=== PATIENT | female | born 2000 | race Caucasian/White ===

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

== ENCOUNTER 2021-04-10 10:37 | Outpatient (REF) | payer OTHER, SELFPAY ==
[2021-04-10 11:17] LABS: COVID-19 Test Positive (Negative); IDNOW Serial# 16C4AD1C
== END 2021-04-10 10:38 | disposition home or self-care (01) ==
LOC: HO.LAB 10:37
PROVIDERS: Visit Provider Internal Medicine
DX: Z20.822 Contact with and (suspected) exposure to COVID-19 (principal)
CPT/HCPCS: 36415; 87635; C9803

== ENCOUNTER 2022-02-05 20:25 | Emergency (ER) | payer SELFPAY ==
[2022-02-05 21:15] VITALS: BP 156/103; PULSE 86; RESP 16; TEMP 36.8; O2SAT 98; BMI 37.8
--- NOTE | 2022-02-05 21:27 | ED.GENADULT ---
HPI - General Adult General Chief complaint: General Medical Stated complaint: Possible chicken pox on extremities Time Seen by Provider: 02/05/22 21:11 Source: patient Mode of arrival: ambulatory Limitations: no limitations History of Present Illness HPI narrative: Patient comes to the emergency room complaining of itchy bumps in her lower extremities that started 2-3 days ago. Patient denies any fever chills, no nausea vomiting or diarrhea, no systemic illnesses. Patient told the triage nurse that she has been having dizzy spells, but when I spoke to the patient, patient states that sometimes she has vertigo like sensation but it has been going on for years, not new. Patient states that the bumps in her legs are itchy and she has been scratching them. Patient does not have the rash anywhere else in her body Related Data Previous Rx's Medication Instructions Recorded hydrocortisone 2.5 % topical cream 1 appl topical TID #20 grams 02/05/22 hydroxyzine HCl 25 mg tablet 25 mg PO BID PRN itching #10 tabs 02/05/22 Allergies Allergy/AdvReac Type Severity Reaction Status Date / Time amoxicillin [AMOXICILLIN] Allergy Unknown RASH Unverified 12/24/19 17:00 Review of Systems Review of Systems: Constitutional : No Weight loss, No Fever, No Chills, No Night Sweats, No Fatigue, No Malaise ENT/Mouth : No Hearing loss, No Ear Pain, No Nasal Congestion, No Sinus Pain, No Hoarseness, No sore throat, No Rhinorrhea, No Swallowing Difficulty Eyes: No Eye Pain, No Swelling, No Redness, No Foreign Body, No Discharge, No Vision Changes Cardiovascular : No Chest Pain, No SOB, No Dyspnea on Exertion, No Orthopnea, No Edema, No Palpitations Respiratory : No Cough, No Sputum, No Wheezing, No Smoke Exposure, No Dyspnea Gastrointestinal : No Nausea, No Vomiting, No Diarrhea, No Constipation, No abdominal Pain, No Hematochezia, No Melena Genitourinary : no irregular bleeding, No Dysuria, No Urinary Frequency, No Hematuria, No Urinary Incontinence, No Urgency, No Flank Pain, No Urinary Flow Changes, No Hesitancy Musculoskeletal : No joint pain, No Myalgias, No Joint Swelling Skin : Complaining of an itchy rash in lower extremities Neuro : No Weakness, No Numbness, No Paresthesias, No Loss of Consciousness, No Dizziness, No Headache Psych : No Anxiety/Panic, No Depression, No SI/HI/AH/VH, No Social Issues, Heme/Lymph: No Bruising, No Bleeding,No Lymphadenopathy Endocrine : No Polyuria, No Polydipsia, No Temperature Intolerance [facility] Social History Social History Advance Directives: No Advance Directives Information Provided: No Physical Exam ED Vital Signs: Vital Signs - 24 hr 02/05/22 21:15 Temperature 98.2 F Pulse Rate 86 Respiratory Rate 16 Blood Pressure 156/103 H Pulse Oximetry 98 Oxygen Delivery Method Room Air BMI result Body Mass Index 37.8 Const Other: Appearance: Alert. Oriented X3. No acute distress. Eyes: Pupils equal, round and reactive to light. ENT: Pharynx normal. Neck: Normal inspection. Neck supple. No lymph nodes noted. No crepitus CVS: Normal heart rate and rhythm. Pulses normal. Normal S1 and S2 Respiratory: No respiratory distress. Breath sounds normal. No Wheezing. No rales Abdomen: Soft and nontender. No rigidity. No distention. Skin: Skin within normal limits except in lower extremities, patient has multiple small papules and pustules on an erythematous base, all of them are at the same stage, scratch mccoy/abrasions present from scratching. There is a contact dermatitis rash in the periumbilical area, no rash in palms or soles Extremities: No lower extremity edema. No Lacerations. No Rash Neuro: Oriented X 3. No motor deficit. No sensory deficit. Moving all extremities. No slurred speech. CN 2 through 12 grossly intact Psych: calm, cooperative, normal affect Course Course Course Narrative: Other than the rash in lower extremities, patient does not have any systemic illnesses. Patient denies taking baths in tubs. Patient's labs are pending, patient getting 1 dose of Solu-Medrol, diphenhydramine There are no significant disturbances in patient's labs. Patient likely having a viral illness versus folliculitis. Patient is well-appearing otherwise. Medical Decision Making Lab Data Result diagrams: 02/05/22 21:45 02/05/22 21:45 Labs: Lab Results 02/05/22 02/05/22 Range/Units 21:45 21:45 WBC 8.0 (4.8-10.8) X10*3/uL RBC 5.35 (4.20-5.50) X10*6/uL Hgb 13.3 (12.0-16.0) g/dl Hct 41.6 (37.0-47.0) % MCV 77.8 L (80.0-98.0) fL MCH 24.9 L (27.0-33.0) pg MCHC 32.0 (31.0-35.0) g/dl RDW 14.2 (11.0-16.0) % Plt Count 270 (160-400) X10*3/uL MPV 10.7 (9.4-12.3) fL Immature Gran % (Auto) 0.1 (0.0-0.4) % Neut % (Auto) 54.0 (45-73) % Lymph % (Auto) 35.3 (20-40) % Craig % (Auto) 8.7 (2-11) % Eos % (Auto) 1.7 (0-4) % Baso % (Auto) 0.2 (0-2) % Lymph # (Auto) 2.8 (1.2-4.9) X10*3/uL Craig # (Auto) 0.7 (0.1-1.2) X10*3/uL Eos # (Auto) 0.1 (0.0-0.4) X10*3/uL Baso # (Auto) 0.0 (0.0-0.2) X10*3/uL Abs Immat Gran (auto) 0.01 (0.00-0.03) X10*3/uL Absolute Neuts (auto) 4.3 (2.0-8.3) x10*3/uL Absolute Nucleated RBC 0.000 (0.0-0.012) X10*3/uL Nucleated RBC % (auto) 0.0 (0.0-0.2) /100WBC Sodium 141 (135-145) mmol/L Potassium 3.7 (3.3-5.1) mmol/L Chloride 106 (96-108) mmol/L Carbon Dioxide 27 (22-29) mmol/L Anion Gap 12 (12-20) BUN 12 (9-16) mg/dL Creatinine 0.69 (0.5-1.4) mg/dL Estim Creat Clear Calc 149.3 Estimated GFR > 60 Random Glucose 101 (60-115) mg/dL Calcium 9.0 (8.4-10.2) mg/dL Discharge Plan Discharge Clinical Impression: Rash and nonspecific skin eruption Patient Disposition: Home, Self-Care Instructions: Acute Rash (ED), Cold Compress or Soak (ED) Additional Instructions: Please follow-up with your primary care physician tomorrow. If you have any worsening or new symptoms, please return to the emergency room or call 911 Prescriptions: New hydroxyzine HCl 25 mg tablet 25 mg PO BID PRN (Reason: itching) Qty: 10 0RF hydrocortisone 2.5 % cream 1 appl topical TID Qty: 20 0RF
[2022-02-05] MEDS: methylPREDNISolone Sod Succ 125 MG/2 ML VIAL IVPUSH (21:39)
[2022-02-05] MEDS: diphenhydrAMINE HCL 50 MG/ML VIAL 25 MG IVPUSH (21:39)
[2022-02-05 21:50] LABS: MANUAL DIFF FLAG NO
[2022-02-05 21:52] LABS: Basophils Percent Auto 0.2 % (0-2); Eosinophils Absolute Auto 0.1 X10*3/uL (0.0-0.4); Eosinophils Percent Auto 1.7 % (0-4); Hematocrit 41.6 % (37.0-47.0); Hemoglobin 13.3 g/dl (12.0-16.0); Imm Gran Abs Auto 0.01 X10*3/uL (0.00-0.03); Imm Gran Pct Auto 0.1 % (0.0-0.4); Lymphocytes Absolute Auto 2.8 X10*3/uL (1.2-4.9); Lymphocytes Percent Auto 35.3 % (20-40); Mean Corpuscular Hemoglobin 24.9 pg (27.0-33.0); Mean Corpuscular Volume 77.8 fL (80.0-98.0); Mean Platelet Volume 10.7 fL (9.4-12.3); Monocytes Absolute Auto 0.7 X10*3/uL (0.1-1.2); Monocytes Percent Auto 8.7 % (2-11); Neutrophils Absolute Auto 4.3 x10*3/uL (2.0-8.3); Platelet Count 270 X10*3/uL (160-400); Red Blood Count 5.35 X10*6/uL (4.20-5.50); Red Cell Distribution Width 14.2 % (11.0-16.0)
[2022-02-05 22:04] LABS: Anion Gap 12 (12-20); Blood Urea Nitrogen 12 mg/dL (9-16); Carbon Dioxide 27 mmol/L (22-29); Chloride 106 mmol/L (96-108); Creatinine Clr Calc Pharmacy 149.3; Estimated Glomerular Filt Rate > 60; Glucose Random 101 mg/dL (60-115); Potassium 3.7 mmol/L (3.3-5.1); Sodium 141 mmol/L (135-145)
== END 2022-02-05 22:31 | disposition home or self-care (01) ==
PROVIDERS: Emergency Provider Emergency Medicine
DX: R21 Rash and other nonspecific skin eruption (principal); Z79.899 Other long term (current) drug therapy
CPT/HCPCS: 36415; 80048; 85025; 96374; 96375; 99283; 99284; J1200; J2930

== ENCOUNTER 2024-04-15 11:12 | Outpatient (REF) | payer SELFPAY ==
[2024-04-15 13:54] LABS: Alanine Aminotransferase 45 U/L (0-31); Albumin Level 4.1 g/dL (3.5-5.0); Alkaline Phosphatase 72 U/L (39-117); Anion Gap 14 (12-20); Aspartate Amino Transferase 39 U/L (5-31); Bilirubin Direct 0.2 mg/dL (0.0-0.5); Bilirubin Total 0.8 mg/dL (0.0-1.0); Blood Urea Nitrogen 10 mg/dL (9-16); Calcium 9.3 mg/dL (8.4-10.2); Carbon Dioxide 27 mmol/L (22-29); Chloride 107 mmol/L (96-108); Cholesterol 163 mg/dL (<200); Estimated Glomerular Filt Rate > 60; Glucose Random 101 mg/dL (60-115); HDL Cholesterol 44 mg/dL (>40); LDL Cholesterol Calculated 98 mg/dL (<100); Potassium 3.6 mmol/L (3.3-5.1); Sodium 144 mmol/L (135-145); TSH reflex Free T4 1.14 uIU/mL (0.32-4.0); Total Protein 7.5 g/dL (6.5-8.0); Triglycerides 106 mg/dL (<150)
[2024-04-15 14:12] LABS: Reflex LDLD? No
== END 2024-04-15 11:13 | disposition home or self-care (01) ==
LOC: HO.HHCL 11:12
PROVIDERS: Visit Provider Internal Medicine
DX: I10 Essential (primary) hypertension (principal); E66.813 Obesity, class 3; E66.01 Morbid (severe) obesity due to excess calories; Z68.41 Body mass index [BMI] 40.0-44.9, adult
CPT/HCPCS: 36415; 80053; 80061; 82248; 84443

== ENCOUNTER 2024-05-06 11:22 | Outpatient (REF) | payer SELFPAY ==
--- OUTSIDE RECORDS SUMMARY | 2024-05-06 13:41 | XMS_ITS | Encounter Summary ---
Author Organization [employer] Address [address] [facility] 7t [place] [address] Care Team Providers Care Intensive Care Nurse Name Role Phone Alice Saucedo MD Primary Care Provider + Reason for Visit * Reason Onset Date Comments Lab Results 04/15/2024 Encounter Details Date Type Department Care Team ([facility] st Contact Info) Description 04/15/2024 Telephone [facility] MEDICINE [address] [place] [address] Alice Saucedo MD [address] [place] [address] Lab Results Social History Tobacco Use Types Packs/Day Years Used Date Smoking Tobacco: Never Passive Smoke Exposure: Never Smokeless Tobacco: Never Alcohol Use Standard Drinks/Week Comments Never 0 (1 standard drink = 0.6 oz pur e alcohol) Depression Answer Date Recorded Patient Health Questionnaire-9 Score 4 02/25/2024 Patient Health Questionnaire-9 Score 4 02/25/2024 Last PHQ-9: Questionnaire Data Not on file 1 04/26/2023 Housing Stability Answer Date Recorded What is your housing situation today? I have josr [place] 02/25/[address] you li ve. Do you have problems with any of the following? None of the above 02/25/2024 Food Insecurity Answer Date Recorded Within the past 12 months, y ou worried that your food would run out before you got money to buy more: Never True 02/25/2024 Within the past 12 months,th e food you bought just didn't last and you didn't have enough money to get more: Never True Transportation Answer Date Recorded In the past 12 months, has l ack of transportation kept you from medical appts, meetings, work or from getting things needed for daily living? No 02/25/2024 Utilities Answer Date Recorded In the past 12 months, has t he electric, gas, oil or water company threatened to shut off services in your home? No 02/25/2024 Depression Answer Date Recorded Patient Health Questionnaire-2 Score 0 02/25/2024 Internet Access Answer Date Recorded Internet Access Q1 No 02/25/2024 Internet Access Q2 I do not want or need it 02/06 Comments No Sex and Gender Information Value Date Recorded Sex Assigned at Female 02/05/2022 10:16 AM EDT Legal Sex Female 10:16 AM EDT Gender Identity Choose not to disclose 10:16 AM EDT Sexual Orientation Choose not to disclose 2021 10:16 AM EDT documented as of this encounter Miscellaneous Notes * Telephone Encounter - Adriana Lennon RN - 04/16/2024 9:03 AM EST Tc to pt to let them know per PCP Patient's labs today showed mildly elevated LFTs, she didn't show to today's appt. Please call her and tell her to get liver tests done again before next appt w me, tell her that the liver seems to be a bit inflamed but is working well, that it may or not be related to fatty liver but we need to make sure she doesn't have any other condition that we can treat in her liver. Please schedule a fu BP appt w RN if I don't have slots within the next 3-4w and tell her to take her BP meds daily (refill profile shows otherwise, last refill x 30d was on 02/24). Pt scheduled for BP Check visit with the red team nurses on 05/06/24, continue to take their BP meds as p rescribed and completed their blood work. Pt verbalized understanding and denies any further questions or concerns at this time. * Telephone Encounter - Marilee Hassan RN - 04/15/2024 3:46 PM EST Telephone call x1 pm to regarding the following message from Dr. Saucedo : Patient's labs today showed mildly elevated LFTs, she didn't show to today's appt. Please call her and tell her to get liver tests done again before next appt w me, tell her that theliver seems to be a bit inflamed but is working well, that it may or not be related to fatty liver but we need to make sure she doesn't have any other condition that we can treat in her liver. Pleaseschedule a fu BP appt w RN if I don't have slots within the next 3-4w and tell her to take her BP meds daily (refill profile shows otherwise, last refill x 30d was on 02/24). No answer. Message wasleft to return call to the Red team nurses . documented in this encounter Plan of Treatment Upcoming Encounters Date Type Department Care Team (Late st Contact Info) Description 05/13/2024 10:00 AM EST Clinical Support [facility] MEDICINE [address] [place] [address] documented as of this encounter Visit Diagnoses Not on filedocumented in this encounter Additional Health Concerns Assessment Noted Time PHQ-9 Depression Total Score: 4 02/25/20 24 1:22 PM EST documented as of this encounter Care Teams Intensive Care Nurse Relationship Specialty Start Date End Date Alice Saucedo MD [address] [place] [address] PCP - General Internal Medicine 12/19/23 documented as of this encounter
--- OUTSIDE RECORDS SUMMARY | 2024-05-06 13:41 | XMS_ITS | Encounter Summary ---
Author Organization [employer] Address [address] [facility] 7t [place] [address] Care Team Providers Care Tool Rental Technician Name Role Phone Monique Wetzel Primary Care Provider [phone] Daniella Cisneros NP Primary Care Provider [phone] Alice Saucedo MD Primary Care Provider + Reason for Visit * Reason Comments Med Refill Encounter Details Date Type Department Care Team (Late st Contact Info) Description 03/05/2023 Refill [facility] MEDICINE [address] [place], [place] [phone] Monique Wetzel FNP [address] [place] [address] Social History Tobacco Use Types Packs/Day Years Used Date Smoking Tobacco: Never Smokeless Tobacco: Never Alcohol Use Standard Drinks/Week Comments Never 0 (1 standard drink = 0.6 oz pur e alcohol) Depression Answer Date Recorded Patient Health Questionnaire-9 Score 0 08/17/2022 Housing Stability Answer Date Recorded What is your housing situation today? I have josr [place] 01/21/[address] you li ve. Do you have problems with any of the following? None of the above 01/21/2023 Food Insecurity Answer Date Recorded Within the past 12 months, y ou worried that your food would run out before you got money to buy more: Sometimes True 2022 Within the past 12 months,th e food you bought just didn't last and you didn't have enough money to get more: Sometimes True 01/21/2023 Transportation Answer Date Recorded In the past 12 months, has l ack of transportation kept you from medical appts, meetings, work or from getting things needed for daily living? No 01/21/2023 Utilities Answer Date Recorded In the past 12 months, has t he electric, gas, oil or water company threatened to shut off services in your home? Yes 01/13/2023 Depression Answer Date Recorded Patient Health Questionnaire-2 Score 0 08/17/2022 Comments Unknown Sex and Gender Information Value Date Recorded Sex Assigned at Female 02/05/2022 10:16 AM EDT Legal Sex Female 10:16 AM EDT Gender Identity Choose not to disclose 10:16 AM EDT Sexual Orientation Choose not to disclose 2021 10:16 AM EDT documented as of this encounter Plan of Treatment Upcoming Encounters Date Type Department Care Team (Late st Contact Info) Description 05/13/2024 10:00 AM EST Clinical Support [facility] [address] [place] [phone] documented as of this encounter Visit Diagnoses Not on filedocumented in this encounter Additional Health Concerns Assessment Noted Time PHQ-9 Depression Total Score: 0 08/18/19 23 2:23 PM EDT documented as of this encounter Care Teams Tool Rental Technician Relationship Specialty Start Date End Date Monique Wetzel FNP [address] [place] [address] PCP - General Family Medicine 08/17/22 12/09/23 Daniella Cisneros NP [address] [place] [address] PCP - General Family Medicine 12/10/23 12/18/23 Alice Saucedo MD [address] [place] [phone] PCP - General Internal Medicine 12/19/23 documented as of this encounter
--- OUTSIDE RECORDS SUMMARY | 2024-05-06 13:41 | XMS_ITS | Encounter Summary ---
Author Organization [employer] Address [address] [facility] 7t [place] [address] Care Team Providers Care Compliance Tester Name Role Phone Alice Saucedo MD Primary Care Provider + Reason for Visit * Reason Onset Date Comments Appointment Request 12/19/2023 Encounter Details Date Type Department Care Team ([facility] st Contact Info) Description 12/19/2023 Telephone [facility] MEDICINE [address] [place] [address] Alice Saucedo MD [address] [place] [address] Appointment Request Social History Tobacco Use Types Packs/Day Years Used Date Smoking Tobacco: Never Passive Smoke Exposure: Never Smokeless Tobacco: Never Alcohol Use Standard Drinks/Week Comments Never 0 (1 standard drink = 0.6 oz pur e alcohol) Depression Answer Date Recorded Patient Health Questionnaire-9 Score 0 08/17/2022 Housing Stability Answer Date Recorded What is your housing situation today? Not on galo e 08/15/[address] you li ve. Do you have problems with any of the following? None of the above 08/15/2023 Food Insecurity Answer Date Recorded Within the [...] encounter Miscellaneous Notes * Telephone Encounter - Magdi Hurley - 12/19/2023 1:23 PM EDT Tc from patient calling to cancel TP appt for 12/19 and would like a call back to reschedule comic book writer did attempt to reschedule however there was no availability documented in this encounter Plan of Treatment Upcoming Encounters Date Type Department Care Team (Late st Contact Info) Description 05/13/2024 10:00 AM EST Clinical Support [facility] MEDICINE [address] [place] [address] documented as of this encounter Visit Diagnoses Not on filedocumented in this encounter Additional Health Concerns Assessment Noted Time PHQ-9 Depression Total Score: 0 08/18/19 23 2:23 PM EDT documented as of this encounter Care Teams Compliance Tester Relationship Specialty Start Date End Date Alice Saucedo MD [address] [place] [address] PCP - General Internal Medicine 12/19/23 documented as of this encounter
--- OUTSIDE RECORDS SUMMARY | 2024-05-06 13:41 | XMS_ITS | Encounter Summary ---
Author Organization [employer] Address [address] [facility] 7t [place] [address] Care Team Providers Care Fighter Pilot Name Role Phone Alice Saucedo MD Primary Care Provider + Encounter Details Date Type Department Care Team ([facility] st Contact Info) Description 04/15/2024 Orders Only [facility] [address] [place], [place] [phone] Alice Saucedo MD [address] [place], [place] [phone] Elevated liver function tests (Primary Dx) Social History Tobacco Use Types Packs/Day Years [...] Description 05/13/2024 10:00 AM EST Clinical Support [facility] [address] [place] [phone] Scheduled Orders Name Type Priority Associated Diagnoses Orde r Schedule Hepatitis Panel, General Lab Routine Elevated liver function tests Expected: 04/15/2024 (Approximate), Expires: 04/15/2025 Syphilis Screen Lab Routine Elevated liver function tests Expected: 04/15/2024 (Approximate), Expires: 04/15/2025 HIV-1/2 Antigen and Antibodies, Fourth Generation, with Reflexes Lab Routine Elevated liver function tests Expected: 04/15/2024 (Approximate), Expires: 04/15/2025 Hepatic Function Panel Lab Routine Elevated liver function tests Expected: 04/15/2024 (Approximate), Expires: 04/15/2025 Gamma Glutamyl Transferase (GGT) Lab Routine Elevated liver function tests Expected: 04/15/2024 (Approximate), Expires: 04/15/2025 Actin (Smooth Muscle) Antibody (IgG) Lab Routine Elevated liver function tests Expected: 04/15/2024 (Approximate), Expires: 04/15/2025 Mitochondrial Antibody with Reflex to Titer Lab Routine Elevated liver function tests Expected: 04/15/2024 (Approximate), Expires: 04/15/2025 documented as of this encounter Visit Diagnoses Diagnosis Elevated liver function tests- Primary Other abnormal blood chemistry documented in this encounter Additional Health Concerns Assessment Noted Time PHQ-9 Depression Total Score: 4 02/25/20 24 1:22 PM EST documented as of this encounter Care Teams Fighter Pilot Relationship Specialty Start Date End Date Alice Saucedo MD [address] [place] [address] PCP - General Internal Medicine 12/19/23 documented as of this encounter
--- OUTSIDE RECORDS SUMMARY | 2024-05-06 13:41 | XMS_ITS | Encounter Summary ---
Author Organization [employer] Address [address] [place] [address] Care Team Providers Care Printing Roller Polisher Name Role Phone Alice Saucedo MD Primary Care Provider + Encounter Details Date Type Department Care Team ([facility] st Contact Info) Description 05/06/2024 Telephone [facility] MEDICINE [address] [place], [place] [phone] Alice Saucedo MD [address] [place] [address] Social History Tobacco Use Types Packs/Day Years [...] encounter Miscellaneous Notes * Telephone Encounter - Neva Calderon - 05/06/2024 12:04 PM EST Pt walked in for appt on 05/06/24 pt was having insurance issues so we sent pt to insurance enrollment, pt came back and said they told her to wait about 30 min to see the update on her insurance and we spoke to the nurse and informed her she came on time but now she is late , the nurse said just tolet her know when she is all set and she can try to see her, pt came back informing us that she works at 1pm and the lady from insurance enrollment went to lunch so she didn't know how long it would to take so we rs the appt. documented in this encounter Plan of Treatment Upcoming Encounters Date Type Department Care Team (Late st Contact Info) Description 05/13/2024 10:00 AM EST Clinical Support [facility] MEDICINE [address] [place] [phone] documented as of this encounter Visit Diagnoses Not on filedocumented in this encounter Additional Health Concerns Assessment Noted Time PHQ-9 Depression Total Score: 4 02/25/20 24 1:22 PM EST documented as of this encounter Care Teams Printing Roller Polisher Relationship Specialty Start Date End Date Alice Saucedo MD [address] [place] [address] PCP - General Internal Medicine 12/19/23 documented as of this encounter
--- OUTSIDE RECORDS SUMMARY | 2024-05-06 13:41 | XMS_ITS | Encounter Summary ---
Author Organization [employer] Address [address] [facility] 7t [place] [address] Care Team Providers Care Software Lead Name Role Phone Alice Saucedo MD Primary Care Provider + Reason for Visit * Reason Onset Date Comments insurance 04/14/2024 Encounter Details Date Type Department Care Team ([facility] st Contact Info) Description 04/14/2024 Telephone [facility] MEDICINE [address] [place], [place] [phone] Alice Saucedo MD [address] [place] [phone] insurance Social History Tobacco Use Types Packs/Day Years [...] encounter Miscellaneous Notes * Telephone Encounter - Cece Marques - 04/14/2024 10:39 AM EST Fd called pt on 04/14/2024 @ 10:41 am to let her know that we don't have insurance on her chart and [facility] ( [facility]) shows that pt is inegible. There was no answer so I left a detailed message with this information. documented in this encounter Plan of Treatment Upcoming Encounters Date Type Department Care Team (Late st Contact Info) Description 05/13/2024 10:00 AM EST Clinical Support [facility] MEDICINE [address] [place] [address] documented as of this encounter Visit Diagnoses Not on filedocumented in this encounter Additional Health Concerns Assessment Noted Time PHQ-9 Depression Total Score: 4 02/25/20 24 1:22 PM EST documented as of this encounter Care Teams Software Lead Relationship Specialty Start Date End Date Alice Saucedo MD [address] [place] [address] PCP - General Internal Medicine 12/19/23 documented as of this encounter
--- OUTSIDE RECORDS SUMMARY | 2024-05-06 13:41 | XMS_ITS | Encounter Summary ---
Author Organization [employer] Address [address] [facility] 7t [place] [address] Care Team Providers Care Culinary Director Name Role Phone Alice Saucedo MD Primary Care Provider + Reason for Visit * Reason Onset Date Comments insurance 05/05/2024 Encounter Details Date Type Department Care Team ([facility] st Contact Info) Description 05/05/2024 Telephone [facility] MEDICINE [address] [place], [place] [phone] Alice Saucedo MD [address] [place] [address] insurance Social History Tobacco Use Types Packs/Day [...] * Telephone Encounter - Cece Marques - 05/05/2024 9:45 AM EST Fd called pt on 05/05/2024 to let her know that her insurance shows inactive. Pt reported she currently has [employer]. I informed pt that for the appt scheduled for 05/06/2024 she needs to bring her ins card or a confirmation number from insurance so we can add it to her chart. Pt verbalized understanding and said she will bring all the information to appt. documented in this encounter Plan of Treatment Upcoming Encounters Date Type Department Care Team (Late st Contact Info) Description 05/13/2024 10:00 AM EST Clinical Support [facility] MEDICINE [address] [place], [place] [phone] documented as of this encounter Visit Diagnoses Not on filedocumented in this encounter Additional Health Concerns Assessment Noted Time PHQ-9 Depression Total Score: 4 02/25/20 24 1:22 PM EST documented as of this encounter Care Teams Culinary Director Relationship Specialty Start Date End Date Alice Saucedo MD [address] [place] [address] PCP - General Internal Medicine 12/19/23 documented as of this encounter
--- OUTSIDE RECORDS SUMMARY | 2024-05-06 13:41 | XMS_ITS | Encounter Summary ---
Author Organization [employer] Address [address] [facility] 7t [place] [address] Care Team Providers Care Clerk Funeral Detail Name Role Phone Monique Wetzel Primary Care Provider [phone] Daniella Cisneros NP Primary Care Provider [phone] Alice Saucedo MD Primary Care Provider + Reason for Visit * Reason Comments Med Refill Encounter Details Date Type Department Care Team (Late st Contact Info) Description 07/31/2023 Refill [facility] MEDICINE [address] [place], [place] [phone] Monique Wetzel FNP [address] [place] [address] Social History Tobacco Use Types Packs/Day Years Used Date Smoking Tobacco: Never Passive Smoke Exposure: Never Smokeless Tobacco: Never Alcohol Use Standard Drinks/Week Comments Never 0 (1 standard drink = 0.6 oz pur e alcohol) Depression Answer Date Recorded Patient Health Questionnaire-9 Score 0 08/17/2022 Housing Stability Answer Date Recorded What is your housing situation today? I have josrkayleigh fairbanks 01/21/[address] you [...] Description 05/13/2024 10:00 AM EST Clinical Support [facility] MED[facility]INE [address] [place] [address] documented as of this encounter Visit Diagnoses Not on filedocumented in this encounter Additional Health Concerns Assessment Noted Time PHQ-9 Depression Total Score: 0 08/18/19 23 2:23 PM EDT documented as of this encounter Care Teams Clerk Funeral Detail Relationship Specialty Start Date End Date Monique Wetzel FNP [address] [place] [phone] PCP - General Family Medicine 08/17/22 12/09/23 Daniella Cisneros NP [address] [place] [phone] PCP - General Family Medicine 12/10/23 12/18/23 Alice Saucedo MD [address] [place] [address] PCP - General Internal Medicine 12/19/23 documented as of this encounter
--- OUTSIDE RECORDS SUMMARY | 2024-05-06 13:41 | XMS_ITS | Encounter Summary ---
Author Organization [employer] Address [address] 7t [place] [address] Care Team Providers Care Shagger Name Role Phone Alice Saucedo MD Primary Care Provider + Encounter Details Date Type Department Care Team (Latest Contact Info) Description 05/06/2024 Travel Social History Tobacco Use Types Packs/Day Years [...] Description 05/13/2024 10:00 AM EST Clinical Support [facility] MEDICINE [address] [place] [address] documented as of this encounter Visit Diagnoses Not on filedocumented in this encounter Additional Health Concerns Assessment Noted Time PHQ-9 Depression Total Score: 4 02/25/20 24 1:22 PM EST documented as of this encounter Care Teams Shagger Relationship Specialty Start Date End Date Alice Saucedo MD [address] [place] [address] PCP - General Internal Medicine 12/19/23 documented as of this encounter
--- OUTSIDE RECORDS SUMMARY | 2024-05-06 13:41 | XMS_ITS | Encounter Summary ---
Author Organization [employer] Address [address] [facility] 7t [place] [address] Care Team Providers Care Presser Cotton Ginning Name Role Phone Alice Saucedo MD Primary Care Provider + Reason for Visit * Reason Onset Date Comments Chart prep 04/14/2024 Encounter Details Date Type Department Care Team ([facility] st Contact Info) Description 04/14/2024 Telephone [facility] MEDICINE [address] [place] [address] [place] Chart prep Social History Tobacco Use Types Packs/Day Years [...] encounter Miscellaneous Notes * Telephone Encounter - Xuan Ames [place] - 04/14/2024 1:55 PM EST Chart Prep Labs: not done Images: done Vaccines due: yes Referrals: pending appt Screenings: pap smear , STI screening Overdue care gaps: N/A documented in this encounter Plan of Treatment Upcoming Encounters Date Type Department Care Team (Late st Contact Info) Description 05/13/2024 10:00 AM EST Clinical Support [facility] MEDICINE [address] [place] [address] documented as of this encounter Visit Diagnoses Not on filedocumented in this encounter Additional Health Concerns Assessment Noted Time PHQ-9 Depression Total Score: 4 02/25/20 24 1:22 PM EST documented as of this encounter Care Teams Presser Cotton Ginning Relationship Specialty Start Date End Date Alice Saucedo MD [address] [place] [address] PCP - General Internal Medicine 12/19/23 documented as of this encounter
--- OUTSIDE RECORDS SUMMARY | 2024-05-06 13:41 | XMS_ITS | Encounter Summary ---
Author Organization [employer] Address [address] [facility] 7t [place] [address] Care Team Providers Care Senior Credit Officer Name Role Phone Monique Wetzel Primary Care Provider [phone] Daniella Cisneros NP Primary Care Provider [phone] Alice aSucedo MD Primary Care Provider + Reason for Visit * Reason Comments Med Refill Encounter Details Date Type Department Care Team (Late st Contact Info) Description 01/22/2023 Refill [facility] MEDICINE [address] [place], [place] [phone] Monique Wetzel FNP [address] [place] [address] Social History Tobacco Use Types Packs/Day Years [...] Description 05/13/2024 10:00 AM EST Clinical Support [facility] MEDICINE [address] [place] [phone] documented as of this encounter Visit Diagnoses Not on filedocumented in this encounter Additional Health Concerns Assessment Noted Time PHQ-9 Depression Total Score: 0 08/18/19 23 2:23 PM EDT documented as of this encounter Care Teams Senior Credit Officer Relationship Specialty Start Date End Date Monique Wetzel FNP [address] [place] [phone] PCP - General Family Medicine 08/17/22 12/09/23 Daniella Cisneros NP [address] [place] [phone] PCP - General Family Medicine 12/10/23 12/18/23 Alice Saucedo MD [address] [place] [phone] PCP - General Internal Medicine 12/19/23 documented as of this encounter
--- OUTSIDE RECORDS SUMMARY | 2024-05-06 13:41 | XMS_ITS | Encounter Summary ---
Author Organization [employer] Address [address] [facility] [address] 7[address] [place] [address] Care Team Providers Care Veterinary Pharmacologist Name Role Phone Alice Saucedo MD Primary Care Provider + Encounter Details Date Type Department Care Team (Latest Contact Info) Description 04/15/2024 Travel Social History Tobacco Use Types Packs/Day [...] Description 05/13/2024 10:00 AM EST Clinical Support [facility] MEDICINE [address] [place] [address] documented as of this encounter Visit Diagnoses Not on filedocumented in this encounter Additional Health Concerns Assessment Noted Time PHQ-9 Depression Total Score: 4 02/25/20 24 1:22 PM EST documented as of this encounter Care Teams Veterinary Pharmacologist Relationship Specialty Start Date End Date Alice Saucedo MD [address] [place] [address] PCP - General Internal Medicine 12/19/23 documented as of this encounter
--- OUTSIDE RECORDS SUMMARY | 2024-05-06 13:41 | XMS_ITS | Clinical Summary ---
Author Organization [employer] Address 75 [facility] 7t [place] [address] Care Team Providers Care Mechatronics Technologist Name Role Phone Alice Saucedo MD Primary Care Provider + Allergies Active Allergy Reactions Criticality Noted Date Comments Amoxicillin Rash Medium 03/25/2017 Medications * This document contains information received from the source organization and may not represent a complete record from that organization. LORazepam (Ativan) 0.5 MG tablet Take 1 tab po BID prn panic attack 9 Active Blood Pressure Monitor kit 1 kit 2 times daily. 1 kit 3 Active lidocaine (Lidoderm) 5 % patchIndication s:Chronic bilateral low back pain without sciatica Apply 1 patch topically in the morning. Remove & discard patch within 12 hours or as directed by MD. 30 patch 2 3 Active hydrOXYzine HCl (Atarax) 25 MG tabletIndicatio ns:Anxiety TAKE 1 TABLET(25 MG) BY MOUTH EVERY 8 HOURS NEEDED FOR ANXIETY 90 tablet 1 3 Active naproxen (Naprosyn) 500 MG tabletIndicatio ns:Chronic bilateral low back pain without sciatica TAKE 1 TABLET(500 MG) BY MOUTH TWICE DAILY 60 tablet 4 Active amLODIPine (Norvasc) 5 MG tablet Take 1 tablet (5 mg) by mouth Once per day. 30 tablet 11 4 02/25/20 25 Active sertraline (Zoloft) 50 MG tablet Take 1 tablet (50 mg) by mouth Once per day. 90 tablet 3 4 Active cloNIDine (Catapres) 0.1 MG tablet TAKE 1 TABLET BY MOUTH EVERY NIGHT AT BEDTIME NEEDED FOR INSOMNIA 30 tablet 1 4 Active Active Problems Problem Noted Date Diagnosed Date Elevated liver function tests 04/15/2024 Primary hypertension 02/25/2024 Assessment & Plan (02/25/2024 12:52 PM EST): Uncontrolled. Compliant w/meds Restart amlodipine 5 mg and fu in 3 weeks, order labs. Will do EKG for atypical chest pain, probably related to anxiety. Counseled re low salt diet/increase moderate physical activity. Check home BP BIW and prn CP/HECK/PERLA Non smoking patient. Hypertriglyceridemia 08/31/2022 Attention deficit hyperactivity disorder 019 Generalized anxiety disorder 05/05/2018 Assessment & Plan (02/25/2024 12:51 PM EST): Uncontrolled, pt having panic attacks. Restart Sertraline 50 mg and fu with me in 3-4 weeks. Refer to for evaluation. Pt feels safe at home and is able to reach out for safety. Obesity 02/24/2016 Assessment & Plan (02/25/2024 1:26 PM EST): Will discuss medications +/- nutrition referral at next appt. Order labs to determine sec co morbidities. Recommended to decrease soda and sugary beverage consumption, increase protein intake with meals (at least 1 portion of protein with each meal) to assist with satiety, increase dietary fiber Recommended at least 150 min/week of moderate intensity exercise. Order labs and fu next visit. Reduced visual acuity 02/24/2016 Sleep disorder 06/04/2012 Encounters * This document contains information received from the source organization and may not represent a complete record from that organization. Date Type Department Care Team Description 05/06/2024 Telephone [facility] MEDICINE [address] [place] [address] Alice Saucedo MD 05/06/2024 Travel 05/05/2024 Telephone [facility] MED[facility]INE [address] [place] [address] Alice Saucedo MD insurance 04/15/[address] [phone] Alice Saucedo MD Lab Results 04/15/2024 Orders Only [address] [address] Alice Saucedo MD Elevated liver function tests (Primary Dx) 04/15/2024 Travel 04/14/[address] [address] Xuan Ames [place] Chart prep 04/14/[address] [phone] Alice Saucedo MD insurance 02/25/2024 9:30 AM EST Office Visit [address] [address] Alice Saucedo MD Primary hypertension (Primary Dx); Generalized anxiety disorder; Class 3 severe obesity due to excess calories with serious comorbidity and body mass index (BMI) of 40.0 to 44.9 in adult (CMS/HCC); Dietary counseling; Exercise counseling; Inadequate housing utilities 02/25/[address] [address] Alice Saucedo MD telephone call 02/25/2024 Travel 02/24/[address] [address] Alice Saucedo MD insurance 02/17/2024 Patient Outreach [address] [address] Alice Saucedo MD Pre-visit Planning ((Unable to reach for PVP screening, LVM)) from Last 3 Months Immunizations Name Administration Dates Next Due DTaP 12/19/2006, 3,01/16/2002,11/24,2001 HPV 9-Valent 01/31/2015 HPV, Quadrivalent 12/31/2013,10/13/2013 Hep A, ped/adol, 2 dose 03/26/2016,01/31/2015 Hep B, Adolescent or Pediatric 03/27/2002,2001,2001 Hib (HbOC) 12/18/2002, 2,2001,09/19 IPV 12/19/2006, 2,2001,09/19 Influenza injectable quadriv alent preservative free 02/19/2019,05/02/2018,03/26/2016,01/31 Influenza live intranasal qu adrivalent LIAV4 12/31/2013 Influenza, IIV3, injectable 05/17/2010, 8,02/09/2008 MMR 12/19/2006,2002 Meningococcal MCV4P ACYW-135 05/02/2018,10/14/19 14 Pneumococcal Conjugate PCV 7 12/18/2002, 01/16/2002,2001,09/19 Tdap 10/13/2013 Varicella 12/19/2006,2002 Family History Medical History Relation Name Comments Lung cancer Father's Sister Asthma Mother Hyperthyroidism Mother Relation Name Status Comments Father's Sister Mother Social History Tobacco Use Types Packs/Day Years Used Date Smoking Tobacco: Never Passive Smoke Exposure: Never Smokeless Tobacco: Never Tobacco Cessation:Counseling Given: Not Answered Alcohol Use Standard Drinks/Week Comments Never 0 [...] not to disclose 2021 10:16 AM EDT Last Filed Vital Signs Vital Sign Reading Time Taken Comments Blood Pressure 150/105 02/25/2024 10:10 AM EST Pulse 83 02/25/2024 9:56 AM EST Temperature 36.3 ??C (97.3 ??F) 02/25/2024 9:56 AM ES T Respiratory Rate 20 02/25/2024 9:56 AM EST Oxygen Saturation 99% 02/25/2024 9:56 AM EST Inhaled Oxygen Concentration - - Weight 111 kg (245 lb) 02/25/2024 9:56 AM EST Height 162.6 cm (5' 4 ) 02/25/2024 9:56 AM EST Body Mass Index 42.05 02/25/2024 9:56 AM EST Plan of Treatment Upcoming Encounters Date Type Department Care Team (Late st Contact Info) Description 05/13/2024 10:00 AM EST Clinical Support [facility] MED[facility] [address] [place] [phone] Health Maintenance Due Date Last Done Comments Chlamydia and Gonorrhea Screening 2001 HIV Screening 2001 Alcohol/Substance Use Screening 2013 Family Planning (PISQ) 2016 Hepatitis C Screening 07/11/2019 Pap Smear 2022 DTaP/Tdap/Td Vaccines (7 - Td or Tdap) 10/14/2023 10/13/2013, 12/19/2006, 12/18/2002, Additional history exists COVID-19 Vaccine ( season) 2023 Influenza Vaccine (#1) 2023 9, 05/02/2018, 03/26/2016, Additional history exists Depression Screening 02/24/2025 02/25/2024, 02/25/20 24 SDOH Screening 02/24/2025 02/25/2024 Tobacco Screening 02/24/2025 02/25/2024 Lipid Panel 04/15/2029 04/15/2024, 09/05/2022 Zoster Vaccines (1 of 2) 07/11/2051 RSV Patients and Patients Aged 60 years or older (1 - 1-dose 75+ series) 2076 Hepatitis B Vaccines Completed 03/27/2002, 2001, 2001 HIB Vaccines Completed 12/18/2002, 01/06, 2001, Additional history exists Pneumococcal Vaccine: Pediatrics (0 to 5 Years) and At-Risk Patients (6 to 49) Years) Aged Out 12/18/2002, 01/16/2002, 2001, Additional history exists No longer eligible based on patient's age to complete this topic IPV Vaccines Completed 12/19/2006, 03/09, 2001, Additional history exists HPV Vaccines Completed 01/31/2015, 12/08, 10/13/2013 Hepatitis A Vaccines Completed 03/26/2016, 02/01/20 15 Meningococcal Vaccine Completed 05/02/2018, 014 RSV under 20 months Aged Out No longe r eligible based on patient's age to complete this topic Rotavirus Vaccines Aged Out No longer eligible based on patient's age to complete this topic Procedures Procedure Name Priority Date/Time Associated Diagnosis Comments HEPATIC FUNCTION PANEL Routine 04/15/2024 11:15 AM EST Class 3 severe obesity due to excess calories with serious comorbidity and body mass index (BMI) of 40.0 to 44.9 in adult (CMS/HCC) TSH W/REFLEX TO FT4 Routine 04/15/2024 1 1:15 AM EST Primary hypertension LIPID PANEL WITH REFLEX TO DIRECT LDL Routine 04/15/2024 11:15 AM EST Primary hypertension COMPREHENSIVE METABOLIC PANEL Routine 04/15/2024 11:15 AM EST Primary hypertension ECG 12-LEAD Routine 02/25/2024 1:13 PM EST Primary hypertension from Last 3 Months Results * TSH with Reflex to Free T4 (04/15/2024 11:15 AM EST) TSH reflex Free T4 1.14 0.32 - 4.0 uIU/mL [facility] Blood 04/15/2024 11:1 5 AM EST 04/15/2024 1:04 PM EST us Alice Saucedo MD LAB BLOOD ORDERABLES Fin al Result [facility] [address] [place] [phone] * Lipid Panel with Reflex to Direct LDL (04/15/2024 11:15 AM EST) Triglycerides 106 <150 mg/dL [facility] Comment:Desirable Triglyceri de: less than 150 mg/dLBorderline High Triglyceride 150-199 mg/dLHigh Triglyceride: 200-499 mg/dLVery High Triglyceride: greater than or equal to 5OO mg/dL Cholesterol 163 <200 mg/dL [facility] Comment:Desirable Cholestero l: less than 200 mg/dLBorderline High Cholesterol: 200-239 mg/dLHigh Cholesterol: greater than 239 mg/dL LDL Cholesterol Calculated 98 <100 mg/dL [facility] Comment:Desirable LDL: less than 100 mg/dLNear Optimal/Above Optimal LDL: 110- 129 mg/dLBorderline High LDL: 130-159 mg/dLHigh LDL: 160-189 mg/dLVery High LDL: greater than or equal to 190 mg/dL HDL Cholesterol 44 >40 mg/dL [facility] Comment:Desirable HDL: great er than 40 mg/dL Note: This HDL assay may give artificially low results in patients with liver disease. Blood 04/15/2024 11:1 5 AM EST 04/15/2024 1:04 PM EST Alice Saucedo MD LAB BLOOD ORDERABLES Fin al Result Performing Organization Address [facility] Co de Phone Number [facility] [address] [place] [phone] * Hepatic Function Panel (04/15/2024 11:15 AM EST) Bilirubin, Direct 0.2 0.0 - 0.5 mg/dL [facility] Blood Venous blood specimen / Unknown 04/15/2024 11:15 AM EST 04/15/2024 1:04 PM EST Alice Saucedo MD LAB BLOOD ORDERABLES Fin al Result Performing Organization Address [facility] de Phone Number [facility] [address] [place] [phone] * (ABNORMAL) Comprehensive Metabolic Panel (04/15/2024 11:15 AM EST) Sodium 144 135 - 145 mmol/L [facility] Potassium 3.6 3.3 - 5.1 mmol/L [facility] Chloride 107 96 - 108 mmol/L [facility] Carbon Dioxide 27 22 - 29 mmol/L [facility] Anion Gap 14 12 - 20 [facility] Urea Nitrogen (BUN) 10 9 - 16 mg/dL [facility] Creatinine, Serum 0.75 0.5 - 1.4 mg/dL [facility] Estimated Glomerular Filt Rate >60 [facility] Comment:Chronic Kidney Disea se: Estimated GFR < 60 mL/min/[id number] Kidney Disease: Estimated GFR < 15 mL/min/1.73m2 Glucose 101 60 - 115 mg/dL [facility] Calcium 9.3 8.4 - 10.2 mg/dL [facility] Bilirubin, Total 0.8 0.0 - 1.0 mg/dL [facility] Aspartate Amino Transferase 39(H) 5 - 31 U/L [facility] Alanine Aminotransferase 45(H) 0 - 31 U/L [facility] Total Protein 7.5 6.5 - 8.0 g/dL [facility] Albumin Level 4.1 3.5 - 5.0 g/dL [facility] Alkaline Phosphatase 72 39 - 117 U/L [facility] Blood Venous blood specimen / Unknown 04/15/2024 11:15 AM EST 04/15/2024 1:04 PM EST us Alice Saucedo MD LAB BLOOD ORDERABLES Fin al Result [facility] [address] [place] [phone] * ECG 12 lead (02/25/2024 1:13 PM EST) Narrative Alice Saucedo MD - 02/25/2024 1:13 PM EST NSR@ 72 bpm, normal axis. Unspecific Inf repolarization abn/ flat T waves on aVF and III. Otherwise no ischemic changes. us Alice Saucedo MD ECG ORDERABLES Final Re sult from Last [address] [place] [address] [place] [phone] Care Teams Mechatronics Technologist Relationship Specialty Start Date End Date Alice Saucedo MD [address] [place] [phone] PCP - General Internal Medicine 12/19/23
[2024-05-06 14:05] LABS: Alanine Aminotransferase 36 U/L (0-31); Aspartate Amino Transferase 38 U/L (5-31); Bilirubin Direct 0.1 mg/dL (0.0-0.5); Bilirubin Total 0.3 mg/dL (0.0-1.0); Gamma Glutamyl Transpeptidase 31 U/L (7-33); Total Protein 7.7 g/dL (6.5-8.0)
[2024-05-06 14:27] LABS: Alkaline Phosphatase 88 U/L (39-117)
[2024-05-07 05:27] LABS: Syphilis Screen Nonreactive (Nonreactive)
[2024-05-07 05:40] LABS: HBc Num1 0.11 S/CO (0.00-0.79); HBsAGNum1 0.43 S/CO (0.00-0.99); HIV AB/AG Nonreactive (Nonreactive); HIV Num 1 0.07 S/CO (0.00-0.99); Hepatitis A Antibody IgM 0.18 Index (0-0.79); Hepatitis B Core Antibody Nonreactive (Nonreactive); Hepatitis B Surface Antigen Negative (Negative); ~HepC Num1 0.14 S/CO (0.00-0.79); ~Hepatitis A Antibody IgM Nonreactive (Nonreactive); ~Hepatitis B Surface Antibody NONREACTIVE (Nonreactive); ~Hepatitis C Antibody Nonreactive (Nonreactive)
[2024-05-07 16:04] LABS: Mitochondrial Antibodies NEGATIVE (NEGATIVE)
[2024-05-09 12:39] LABS: Smooth Muscle Antibody <20 U (<20)
== END 2024-05-06 11:23 | disposition home or self-care (01) ==
LOC: HO.HHCL 11:22
PROVIDERS: Visit Provider Internal Medicine
DX: Z11.4 Encounter for screening for human immunodeficiency virus [HIV] (principal); R79.89 Other specified abnormal findings of blood chemistry; Z20.2 Contact with and (suspected) exposure to infections with a predominantly sexual mode of transmission
CPT/HCPCS: 36415; 80076; 82977; 86015; 86381; 86704; 86706; 86709; 86780; 86803; 87340; 87389

== ENCOUNTER 2025-03-10 11:17 | Outpatient (RCR) | payer OTHER, SELFPAY | END 2025-03-10 12:14 | disposition home or self-care (01) | LOC: HO.PT 11:17 | PROVIDERS: PCP Internal Medicine; Visit Provider Internal Medicine | DX: M54.6 Pain in thoracic spine (principal) | CPT/HCPCS: 97110; 97112; 97161; 97530 ==